=== PATIENT | male | born 1990 | race African-American/Black ===

== ENCOUNTER 2018-09-11 21:31 | Emergency (ER) | payer OTHER ==
[~2018-09-11] VITALS: Ht 187.9 cm; Wt 140.6 kg
[~2018-09-11 21:31] MED LIST: ALLEGRA D PO; AUGMENTIN 875 M1 TAB PO; BIAXIN500 MG PO; IBU800 MG PO; KEFLEX500 M1 PO; KEFLEX500 MG PO; MOTRIN800 MG PO; PERCOCET 325 MG1 TA2 PO; VICODIN 5/500 505 MG PO
[2018-09-11] MEDS ORDERED: CEFADROXIL500 M1 PO (23:15)
[2018-09-11] MEDS ORDERED: IBU800 MG PO (23:15)
== END 2018-09-11 23:48 | disposition home or self-care (01) ==
LOC: ED 21:31
DX: S61.412A Laceration without foreign body of left hand, initial encounter (principal); W26.8XXA Contact with other sharp object(s), not elsewhere classified, initial encounter; Y93.89 Activity, other specified; Y92.89 Other specified places as the place of occurrence of the external cause; Y99.8 Other external cause status

== ENCOUNTER 2019-06-25 19:38 | Emergency (ER) | payer OTHER ==
[~2019-06-25] VITALS: Ht 187.9 cm; Wt 145.1 kg
[~2019-06-25 19:38] MED LIST changes: +CEFADROXIL500 M1 PO
[2019-06-25] MEDS ORDERED: NYSTATIN CREAM15 GM T (21:05)
== END 2019-06-25 21:07 | disposition home or self-care (01) ==
LOC: ED 19:38
DX: L85.3 Xerosis cutis (principal); N48.89 Other specified disorders of penis; R11.2 Nausea with vomiting, unspecified; Z11.3 Encounter for screening for infections with a predominantly sexual mode of transmission; Z91.048 Other nonmedicinal substance allergy status; Z79.899 Other long term (current) drug therapy

== ENCOUNTER → 2020-10-27 | Outpatient (CLI) | payer OTHER ==
[~2020-10-27] MED LIST changes: +NYSTATIN CREAM15 GM T
== END | disposition home or self-care (01) ==
LOC: COVID19 15:46
PROVIDERS: ATTEND Internal Medicine
DX: Z20.828 Contact with and (suspected) exposure to other viral communicable diseases (principal)

== ENCOUNTER → 2021-02-25 | Outpatient (CLI) | payer SELFPAY | END | disposition home or self-care (01) | LOC: COVID19 12:31 | PROVIDERS: ATTEND Internal Medicine | DX: U07.1 COVID-19 (principal) ==

== ENCOUNTER → 2023-03-06 | Outpatient (CLI) | payer OTHER ==
[2023-03-06 14:47] LABS: BASO % 0.2 % (0.0-1.0); EOS # 0.1 10*3/uL (0.0-0.4); EOS % 1.2 % (1.0-4.0); HEMATOCRIT 43.2 % (42.0-52.0); LYMPH # 2.2 10*3/uL (1.3-4.4); LYMPH % 38.3 % (27.0-41.0); MEAN CORPUSCULAR HGB CONC 32.2 g/dl (33.0-37.0); MEAN PLATELET VOLUME 10.2 fl (9.6-12.3); MONO # 0.5 10*3/uL (0.1-1.0); MONO % 8.8 % (3.0-9.0); NEUT % 51.3 % (47.0-73.0); PLATELET COUNT AUTOMATED 279 10*3/uL (130-400); RED BLOOD COUNT 5.14 10*6/uL (4.50-5.90); RED CELL DISTRI WIDTH 13.4 % (0-14.5); WHITE BLOOD COUNT 5.8 10*3/uL (4.8-10.8)
[2023-03-06 15:31] LABS: ALKALINE PHOSPHATASE 63 U/L (46-116); BUN 7 mg/dl (9-23); CHLORIDE 105 mmol/L (98-107); CHOLESTEROL 184 mg/dL (<200); FREE T4 1.36 ng/dl (0.89-1.76); LDL CHOLESTEROL 130 mg/dL (9-159); POTASSIUM 3.7 mmol/L (3.4-5.1); SGPT/ALT 50 U/L (10-49); THYROID STIM HORMONE (HS) 2.517 uIU/ml (0.550-4.780); TOTAL PROTEIN 7.7 gm/dL (6.0-8.0); TRIGLYCERIDES 109 mg/dl (<150)
[2023-03-06 15:32] LABS: VITAMIN D, 25-HYDROXY 10.2 ng/mL (30-100)
== END | disposition home or self-care (01) ==
LOC: LAB 01:10 → US 01:10
PROVIDERS: ATTEND Internal Medicine
DX: Z13.0 Encounter for screening for diseases of the blood and blood-forming organs and certain disorders involving the immune mechanism (principal); Z13.1 Encounter for screening for diabetes mellitus; Z13.220 Encounter for screening for lipoid disorders; Z13.228 Encounter for screening for other metabolic disorders; N50.9 Disorder of male genital organs, unspecified; Z13.29 Encounter for screening for other suspected endocrine disorder; Z13.6 Encounter for screening for cardiovascular disorders; Z13.9 Encounter for screening, unspecified